=== PATIENT | female | born 1990 | race Caucasian/White ===

== ENCOUNTER 2020-02-04 13:56 | Emergency (ER) | payer BC ==
[~2020-02-04] VITALS: Ht 167.6 cm; Wt 101.0 kg
[2020-02-04 14:07] VITALS: BP 150/84
--- NOTE | 2020-02-04 14:32 | PHYS DOC ---
Past History Past Medical History: Asthma, Other Additional Past Medical Histor: Carol Past Surgical History: Cholecystectomy, , Hysterectomy, Other Additional Past Surgical Histo: ABD HERNIA REPAIR Alcohol Use: None General Adult EDM: Chief Complaint: VAGINAL PROBLEM HPI: HPI: Patient is a 29-year-old female coming in for vaginal itching and irritation for 5 days. Her [id number] creams without improvement. Says she is prone to infections. States dyspareunia and some burning with urination but she thinks is from scratching. Denies any vaginal bleeding or hematuria. Chronic back pain but otherwise has been well. Denies possibility of due to hysterectomy Review of Systems: Review of Systems: Constitutional: Denies fever or chills Eyes: Denies change in visual acuity HENT: Denies nasal congestion or sore throat Respiratory: Denies cough or shortness of breath Cardiovascular: Denies chest pain or edema GI: Denies abdominal pain, nausea, vomiting, bloody stools or diarrhea : Dysuria and vaginal itching, denies bleeding or discharge. Musculoskeletal: Back pain Integument: Denies rash Neurologic: Denies headache, focal weakness or sensory changes Endocrine: Denies polyuria or polydipsia Lymphatic: Denies swollen glands Psychiatric: Denies depression or anxiety Heart Score: Risk Factors: Risk Factors: DM, Current or recent (<one month) smoker, HTN, HLP, family history of CAD, obesity. Risk Scores: Score 0 - 3: 2.5% MACE over next 6 weeks - Discharge Home Score 4 - 6: 20.3% MACE over next 6 weeks - Admit for Clinical Observation Score 7 - 10: 72.7% MACE over next 6 weeks - Early Invasive Strategies Allergies: Allergies: Allergies Coded Allergies Type Severity Reaction Last Updated Verified Penicillins Allergy Unknown Hives 02/04/20 Yes Physical Exam: PE: Constitutional: Well developed, well nourished, no acute distress, non-toxic appearance. [] HENT: Normocephalic, atraumatic, bilateral external ears normal, oropharynx moist, no oral exudates, nose normal. [] Eyes: PERRLA, EOMI, conjunctiva normal, no discharge. [] Neck: Normal range of motion, no tenderness, supple, no stridor. [] Cardiovascular:Heart rate regular rhythm, no murmur [] Lungs & Thorax: Bilateral breath sounds clear to auscultation [] Abdomen: Bowel sounds normal, soft, no tenderness, no masses, no pulsatile masses. [] Skin: Warm, dry, no erythema, no rash. [] Back: No tenderness, no CVA tenderness. [] Extremities: No tenderness, no cyanosis, no clubbing, ROM intact, no edema. [] Neurologic: Alert and oriented X 3, normal motor function, normal sensory function, no focal deficits noted. [] Psychologic: Affect normal, judgement normal, mood normal. [] : Mild erythema, white noted, no lesions Current Patient Data: Vital Signs: Vital Signs Date Time Temp Pulse Resp B/P (MAP) Pulse Ox O2 Delivery O2 Flow Rate FiO2 02/04/20 14:07 98.5 91 18 150/84 (106) 96 Room Air EKG: EKG: [] Radiology/Procedures: Radiology/Procedures: [] Course & Med Decision Making: Course & Med Decision Making Pertinent Labs and Imaging studies reviewed. (See chart for details) But having difficulty with left hip sample, will treat for clinical evaluation of vaginal candidiasis [] Dragon Disclaimer: Dragon Disclaimer: This electronic medical record was generated, in whole or in part, using a voice recognition dictation system. Departure Departure: Impression: Primary Impression: Vaginal candidiasis Disposition: 01 HOME/RESIDENCE PRIOR TO ADM Condition: STABLE Referrals: PCPLEONOR (PCP) [facility] Additional Instructions: 1 fluconazole day 1, take second tablet in 1 week Scripts Fluconazole (DIFLUCAN) 150 Mg Tablet 1 TAB PO ONCE for vaginal candidias for 1 Day, #1 TAB 2 Refills Prov: MARY FALCON MD 02/04/20 MARY FALCON MD Feb 04, 2020 14:31
[2020-02-04 15:37] LABS: BILIRUBIN,URINE NEG (NEG); CLARITY,URINE CLOUDY; COLOR,URINE YELLOW; GLUCOSE,URINE NEG (NEG)
[2020-02-04 15:38] LABS: BACTERIA,URINE 0 /HPF (0-FEW); NITRITE,URINE NEG (NEG); RBC,URINE 0 /HPF (0-2); SQUAMOUS EPITHELIAL CELL,UR MANY /LPF; UROBILINOGEN,URINE 0.2 mg/dL (0.2 mg/dL)
[2020-02-04] MEDS ORDERED: FLUC150T PO (16:00)
== END 2020-02-04 16:40 | disposition home or self-care (01) ==
LOC: ER 13:56
DX: B37.3 Candidiasis of vulva and vagina (principal); J45.909 Unspecified asthma, uncomplicated; Z90.49 Acquired absence of other specified parts of digestive tract; Z98.890 Other specified postprocedural states; Z90.710 Acquired absence of both cervix and uterus; Z88.0 Allergy status to penicillin
CPT/HCPCS: 36415; 81001; 87086; 87491; 87591; 99283

== ENCOUNTER 2020-03-12 16:49 | Emergency (ER) | payer BC ==
[~2020-03-12] VITALS: Ht 167.6 cm; Wt 101.9 kg
[~2020-03-12 16:49] MED LIST: FLUC150T PO
[2020-03-12 18:28] LABS: U PREG PATIENT NEGATIVE (NEG)
[2020-03-12] MEDS ORDERED: HYDR-3166 PO (18:33)
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
[2020-03-12 18:35] LABS: BILIRUBIN,URINE NEG (NEG); CLARITY,URINE CLEAR; COLOR,URINE YELLOW; GLUCOSE,URINE NEG (NEG)
[2020-03-12 18:36] LABS: BACTERIA,URINE 0 /HPF (0-FEW); NITRITE,URINE NEG (NEG); RBC,URINE 0 /HPF (0-2); SQUAMOUS EPITHELIAL CELL,UR FEW /LPF; UROBILINOGEN,URINE 0.2 mg/dL (0.2 mg/dL); WBC,URINE OCC /HPF (0-4)
[2020-03-12] MEDS ORDERED: HYDROcodone/APAP 7.5/325MG 1 TAB TABLET PO ONE (18:45)
[2020-03-12 19:08] VITALS: BP 99/29
== END 2020-03-12 19:00 | disposition home or self-care (01) ==
LOC: ER 16:49
DX: M51.36 Other intervertebral disc degeneration, lumbar region (principal); G89.29 Other chronic pain; J45.909 Unspecified asthma, uncomplicated; Z90.49 Acquired absence of other specified parts of digestive tract; Z98.890 Other specified postprocedural states; Z90.710 Acquired absence of both cervix and uterus; Z88.0 Allergy status to penicillin
CPT/HCPCS: 81001; 81025; 99283